=== PATIENT | male | born 1940 | race Caucasian/White ===

== ENCOUNTER → 2021-11-11 | Outpatient (CLI) | payer MEDICARE ==
--- NOTE | 2021-11-11 13:16 | US ---
EXAMINATION TYPE: US kidneys/renal and bladder DATE OF EXAM: 11/11/2021 COMPARISON: NONE CLINICAL HISTORY: N18.3 CKD Stage III, N18.9. CKD 3 EXAM MEASUREMENTS: Right Kidney: 10.0 x 5.1 x 4.4 cm Left Kidney: 10.6 x 4.4 x 3.5 cm Right Kidney: No hydronephrosis or masses seen Left Kidney: No hydronephrosis or masses seen Bladder: Anechoic Bilateral Jets seen: No IMPRESSION: No acute ultrasound abnormality bilateral kidneys
== END | disposition home or self-care (01) ==
LOC: RADUSWWP 10:45
PROVIDERS: ATTEND Internal Medicine Nephrology
DX: N18.30 Chronic kidney disease, stage 3 unspecified (principal)
CPT/HCPCS: 76770